=== PATIENT | male | born 1970 | race Caucasian/White ===

== ENCOUNTER → 2023-06-27 | Emergency (ER) | payer BC ==
[~2023-06-27] MED LIST: HYDROCODONE/APAP 10/325 TAB ONE; HYDROMORPHONE HCL 2 MG/ML inj ONE; KETOROLAC 30 MG/ML INJ ONE; PROMETHAZINE 25 MG TABLET ONE; dexAMETHasone 10 MG/ML VIAL ONE
--- NOTE | 2023-06-27 17:06 | RAD REPORT ---
EXAM DESCRIPTION: RAD - Hip Right 2 View - 06/27/2023 4:58 pm CLINICAL HISTORY: PAIN COMPARISON: No comparisons FINDINGS: Right total hip arthroplasty is noted. No hardware loosening or infection. No fracture see n.
--- NOTE | 2023-06-27 17:06 | RAD REPORT ---
EXAM DESCRIPTION: RAD - Pelvis - 06/27/2023 4:58 pm CLINICAL HISTORY: PAIN COMPARISON: No comparisons FINDINGS: Bilateral total hip arthroplasties noted. No hardware abnormality seen. No fracture or dis location evident.
--- NOTE | 2023-06-27 18:11 | EDPHYS ---
Physician Documentation [facility] Name: Santos Louise Age: 52 yrs Sex: Male : 1970 Arrival Date: 06/27/2023 Time: 16:12 Bed IW4 Private MD: PIPER Physician Mat Granger HPI: 06/27 17:53 This 52 yrs old Male presents to ER via Ambulatory with complaints of Hip yeimy Pain. 17:53 The patient or guardian reports decreased range of motion, an injury, pain. that yeimy occurred at an unknown site, sustained from unknown reason, There is no obvious deformity, The patient is able to self ambulate. The patient is able to bear their full body weight. The complaints affect the coccyx. Onset: The symptoms/episode began/occurred today. Modifying factors: The symptoms are alleviated by nothing, remaining still, the symptoms are aggravated by any movement, extension, weight bearing. Associated signs and symptoms: Loss of consciousness: the patient experienced no loss of consciousness. Severity of symptoms: At their worst the symptoms were moderate, in the emergency department the symptoms are unchanged. The patient has experienced similar episodes in the past, several times. Historical: - Allergies: 16:34 PENICILLINS; ll1 - PMHx: 16:34 None; ll1 - PSHx: 16:34 2 hip replacements; ll1 - Immunization history:: Adult Immunizations up to date. - Social history:: Smoking status: Patient reports the use of cigarette tobacco products, smokes one pack cigarettes per day. - Family history:: not pertinent. ROS: 17:53 Constitutional: Negative for fever, chills, and weight loss, Eyes: Negative for injury, yeimy pain, redness, and discharge, ENT: Negative for injury, pain, and discharge, Neck: Negative for injury, pain, and swelling, Cardiovascular: Negative for chest pain, palpitations, and edema, Respiratory: Negative for shortness of breath, cough, wheezing, and pleuritic chest pain, Abdomen/GI: Negative for abdominal pain, nausea, vomiting, diarrhea, and constipation, Back: Negative for injury and pain, : Negative for injury, bleeding, discharge, and swelling, Skin: Negative for injury, rash, and discoloration, Neuro: Negative for headache, weakness, numbness, tingling, and seizure, Psych: Negative for depression, anxiety, suicide ideation, homicidal ideation, and hallucinations, Allergy/Immunology: Negative for hives, rash, and allergies, Endocrine: Negative for neck swelling, polydipsia, polyuria, polyphagia, and marked weight changes, Hematologic/Lymphatic: Negative for swollen nodes, abnormal bleeding, and unusual bruising, 17:53 MS/extremity: Positive for decreased range of motion, pain, of the coccyx, Exam: 17:53 Constitutional: This is a well developed, well nourished patient who is awake, alert, yeimy and in no acute distress. Head/Face: Normocephalic, atraumatic. Eyes: Pupils equal round and reactive to light, extra-ocular motions intact. Lids and lashes normal. Conjunctiva and sclera are non-icteric and not injected. Cornea within normal limits. Periorbital areas with no swelling, redness, or edema. ENT: Nares patent. No nasal discharge, no septal abnormalities noted. Tympanic membranes are normal and external auditory canals are clear. Oropharynx with no redness, swelling, or masses, exudates, or evidence of obstruction, uvula midline. Mucous membranes moist. Neck: Trachea midline, no thyromegaly or masses palpated, and no cervical lymphadenopathy. Supple, full range of motion without nuchal rigidity, or vertebral point tenderness. No Meningismus. Chest/axilla: Normal chest wall appearance and motion. Nontender with no deformity. No lesions are appreciated. Cardiovascular: Regular rate and rhythm with a normal S1 and S2. No gallops, murmurs, or rubs. Normal PMI, no JVD. No pulse deficits. Respiratory: Lungs have equal breath sounds bilaterally, clear to auscultation and percussion. No rales, rhonchi or wheezes noted. No increased work of breathing, no retractions or nasal flaring. Abdomen/GI: Soft, non-tender, with normal bowel sounds. No distension or tympany. No guarding or rebound. No evidence of tenderness throughout. Male : Normal genitalia with no discharge or lesions. Skin: Warm, dry with normal turgor. Normal color with no rashes, no lesions, and no evidence of cellulitis. MS/ Extremity: Pulses equal, no cyanosis. Neurovascular intact. Full, normal range of motion. Neuro: Awake and alert, GCS 15, oriented to person, place, time, and situation. Cranial nerves II-XII grossly intact. Motor strength 5/5 in all extremities. Sensory grossly intact. Cerebellar exam normal. Normal gait. Psych: Awake, alert, with orientation to person, place and time. Behavior, mood, and affect are within normal limits. 17:53 Back: pain, that is moderate, ROM is painful, normal spinal alignment noted, no kyphosis, CVA tenderness, that is mild, vertebral tenderness, is not appreciated, Vital Signs: 16:32 BP 146 / 93; Pulse 100; Resp 18; Temp 97.3; Pulse Ox 100% ; Weight 81.65 kg; Height 5 ll1 ft. 8 in. ; Pain 10/10; 16:32 Body Mass Index 27.37 (81.65 kg, 172.72 cm) ll1 16:32 Pain Scale: Adult ll1 MDM: 16:38 Patient medically screened. [facility] 18:03 Differential diagnosis: bursitis, arthritis, strain. Data reviewed: vital signs, nurses [facility] notes, radiologic studies, plain films. Consideration of Admission/Observation Escalation of care including admission/observation considered. I considered the following discharge prescriptions or medication management in the emergency department Medications were administered in the Emergency Department. See MAR. Independent interpretation of the following test(s) in the Emergency Department X-Ray: My interpretation is hip and pelvis. Test considered but Not performed: Labs: no labs. 06/27 16:39 Order name: Pelvis XRAY; Complete Time: 17:52 yeimy 06/27 16:39 Order name: Hip Right 2 View XRAY; Complete Time: 17:52 [facility] Administered Medications: 16:50 Drug: Ketorolac IM 60 mg IM once Route: IM; Site: left gluteus; ll1 19:03 Follow up: Response: No adverse reaction ll1 16:50 Drug: Dexamethasone IM 10 mg IM once Route: IM; Site: right gluteus; ll1 19:03 Follow up: Response: No adverse reaction ll1 16:51 Drug: Ivor PO 10 mg-325 mg 1 tabs PO once Route: PO; ll1 19:03 Follow up: Response: No adverse reaction; Pain is decreased ll1 18:17 Drug: HYDROmorphone IM 2 mg IM once Route: IM; Site: right gluteus; ll1 19:03 Follow up: Response: No adverse reaction; Pain is decreased ll1 18:17 Drug: Promethazine IM 25 mg IM once {Note: given PO.} Route: IM; Site: Other; ll1 19:03 Follow up: Response: No adverse reaction ll1 Disposition Summary: 06/27/23 18:10 Discharge Ordered Notes: Location: Home yeimy Problem: new yeimy Symptoms: have improved yeimy Condition: Stable yeimy Diagnosis - Pain in right hip yeimy - Sprain of sacroiliac joint yeimy - Sacroiliitis, not elsewhere classified yeimy Followup: yeimy - With: Private Physician - When: 2 - 3 days - Reason: Recheck today's complaints, Continuance of care, Re-evaluation by your physician Followup: yeimy - With: Shaan Hong DO - When: 2 - 3 days - Reason: Recheck today's complaints, Continuance of care, Re-evaluation by your physician Discharge Instructions: - Discharge Summary Sheet yeimy - Joint Pain yeimy - Arthritis yeimy - Musculoskeletal Pain yeimy - Hip Pain yeimy - Arthritis, Ulzh-ga-[id number] [facility] Forms: - Medication Reconciliation Form [facility] - Thank You Letter [facility] - Antibiotic Education yeimy - Prescription Opioid Use yeimy - Patient Portal Instructions yeimy - Leadership Thank You Letter yeimy - Work release form ll1 Signatures: Dispatcher [employer] Mat Bruce MD MD cha Baxter, Heather, RN RN Chapin Parker RN RN ll1 Corrections: (The following items were deleted from the chart) 16:35 16:34 Social history: Smoking status: Patient denies any tobacco usage or history of. ll1 ll1
--- NOTE | 2023-06-27 18:11 | ER ---
Nurse's Notes [facility] Name: Santos Louise Age: 52 yrs Sex: Male : 1970 Arrival Date: 06/27/2023 Time: 16:12 Bed IW4 Private MD: Diagnosis: Pain in right hip;Sprain of sacroiliac joint;Sacroiliitis, not elsewhere classified Presentation: 06/27 16:32 Chief complaint: Patient states: Severe R hip/low back pain. Went to [facility] today. Got ll1 steroid and pain injection. Pain started returning on the way home today. Feet feel cold. No falls/trauma. + sweating. Coronavirus screen: Client denies travel out of the [place] in the last 14 days. At this time, the client does not indicate any symptoms associated with coronavirus-19. Ebola Screen: Patient denies travel to an Ebola-affected area in the 21 days before illness onset. Initial Sepsis Screen: Does the patient meet any 2 criteria? No. Patient's initial sepsis screen is negative. Does the patient have a suspected source of infection? No. Patient's initial sepsis screen is negative. Risk Assessment: Do you want to hurt yourself or someone else? Patient reports no desire to harm self or others. Onset of symptoms was June 21, 2023. 16:32 Method Of Arrival: Ambulatory 1 16:32 Acuity: ESEQUIEL 3 ll1 Triage Assessment: 16:35 General: Appears distressed, uncomfortable, Behavior is cooperative, appropriate for ll1 age, restless. Pain: Complains of pain in R hip area Pain currently is 10 out of 10 on a pain scale. Musculoskeletal: Reports pain in R hip area. Historical: - Allergies: 16:34 PENICILLINS; ll1 - PMHx: 16:34 None; ll1 - PSHx: 16:34 2 hip replacements; ll1 - Immunization history:: Adult Immunizations up to date. - Social history:: Smoking status: Patient reports the use of cigarette tobacco products, smokes one pack cigarettes per day. - Family history:: not pertinent. Screenin:04 [facility] ED Fall Risk Assessment (Adult) Score/Fall Risk Level 0 - 2 = Low Risk ll1 Oriented to surroundings, Maintained a safe environment, Educated pt \T\ family on fall prevention, incl call for assistance when getting out of bed, Hourly rounding (assess needs \T\ fall precautionary measures) done. Abuse screen: Denies threats or abuse. Nutritional screening: No deficits noted. Tuberculosis screening: No symptoms or risk factors identified. Assessment: 18:10 Reassessment: No changes from previously documented assessment. Patient and/or family ll1 updated on plan of care and expected duration. Pain level reassessed. Patient is alert, oriented x 3, equal unlabored respirations, skin warm/dry/pink. Patient states feeling better. 18:20 Reassessment: No changes from previously documented assessment. Patient and/or family ll1 updated on plan of care and expected duration. Pain level reassessed. Vital Signs: 16:32 BP 146 / 93; Pulse 100; Resp 18; Temp 97.3; Pulse Ox 100% ; Weight 81.65 kg; Height 5 ll1 ft. 8 in. ; Pain 10/10; 16:32 Body Mass Index 27.37 (81.65 kg, 172.72 cm) ll1 16:32 Pain Scale: Adult ll1 ED Course: 16:14 Patient arrived in ED. ae5 16:25 Arm band placed on. hb 16:34 Triage completed. ll1 16:38 Mat Granger MD is Attending Physician. yeimy 16:59 Pelvis XRAY In Process Unspecified. EDMS 16:59 Hip Right 2 View XRAY In Process Unspecified. EDMS 18:09 Shaan Hong DO is Referral Physician. yeimy 19:04 No provider procedures requiring assistance completed. Patient did not have IV access ll1 during this emergency room visit. Administered Medications: 16:50 Drug: Ketorolac IM 60 mg IM once Route: IM; Site: left gluteus; ll1 19:03 Follow up: Response: No adverse reaction ll1 16:50 Drug: Dexamethasone IM 10 mg IM once Route: IM; Site: right gluteus; ll1 19:03 Follow up: Response: No adverse reaction ll1 16:51 Drug: [place] PO 10 mg-325 mg 1 tabs PO once Route: PO; ll1 19:03 Follow up: Response: No adverse reaction; Pain is decreased ll1 18:17 Drug: HYDROmorphone IM 2 mg IM once Route: IM; Site: right gluteus; ll1 19:03 Follow up: Response: No adverse reaction; Pain is decreased ll1 18:17 Drug: Promethazine IM 25 mg IM once {Note: given PO.} Route: IM; Site: Other; 1 19:03 Follow up: Response: No adverse reaction ll1 Medication: 19:05 VIS not applicable for this client. ll1 Outcome: 18:10 Discharge ordered by . yeimy 18:20 Patient left the ED. ll1 18:20 Discharged to home ambulatory, 1 18:20 Condition: stable 18:20 Discharge instructions given to patient, Instructed on discharge instructions, follow up and referral plans. Demonstrated understanding of instructions, follow-up care, Signatures: Dispatcher [employer] EDMS Mat Granger MD MD cha Baxter, Heather RN Chapin Del Cid RN RN 1 Nina Ac ae5 Corrections: (The following items were deleted from the chart) 16:35 16:34 Social history: Smoking status: Patient denies any tobacco usage or history of. 1 ll1
[2023-06-27 18:45] VITALS: BP 146/93; TEMP 97.3; O2SAT 100
== END ==
LOC: ER 16:12
DX: S33.6XXA Sprain of sacroiliac joint, initial encounter (principal); M46.1 Sacroiliitis, not elsewhere classified; M25.551 Pain in right hip; F17.210 Nicotine dependence, cigarettes, uncomplicated; Z88.0 Allergy status to penicillin; Z96.649 Presence of unspecified artificial hip joint
CPT/HCPCS: 72170; 73502; 96372; 99284; Q0169; J1170; J1100

== ENCOUNTER 2024-08-04 05:53 | Day surgery (SDC) | payer BC ==
[2024-07-31 13:44] LABS: Absolute Basophils 0.1 K/uL (0-0.5); Absolute Eosinophils 0.2 K/uL (0-0.5); Absolute Lymphocytes (CBC) 2.5 K/uL (0.7-4.9); Absolute Monocytes 0.4 K/uL (0.1-1.3); Absolute Neutrophil 2.5 K/uL (1.8-8.0); Basophils % 1.3 % (0-1.3); Eosinophils % 3.2 % (0-4.4); Hematocrit 42.4 % (39.6-49.0); Hemoglobin 14.8 g/dL (13.6-17.9); Lymphocytes % 44.1 % (15.3-44.8); MCH 31.2 pg (27.0-35.0); MCHC 34.8 g/dL (32.0-36.0); MCV 89.7 fL (80-100); MPV 8.1 fL (7.6-11.3); Monocytes % 6.3 % (3.3-12.3); Neutrophils % 45.1 % (41.7-73.7); Nucleated Red Blood Cells % 0.2 % (0-0); Platelets 257 thou/uL (152-406); RBC Red Blood Cell Count 4.73 M/uL (4.33-5.43); Red Cell Distribution Width 13.3 % (12.1-15.2)
[2024-07-31 13:48] LABS: PT Prothrombin Time 13.5 SECONDS (9.4-12.5); PTT, Activated Partial Thromb 33.8 SECONDS (24.3-36.9); Protime INR 1.29
[2024-07-31 13:57] LABS: Albumin/Globulin Ratio 1.2 (1.1-1.8); Bilirubin Total 0.4 mg/dL (0.2-1.0); Globulin 3.4 g/dL (2.3-3.5); Protein, Total 7.4 g/dL (6.4-8.2)
--- NOTE | 2024-08-01 13:41 | EKG ---
Test Date: 2024-07-31 Test Time: 14:23:36 Preparation Plant Supervisor: JAMIE MEASUREMENT RESULTS: Intervals: Rate: 59 CO: 138 QRSD: 82 QT: 410 QTc: 405 [place]: P: 65 CO: 138 QRS: -22 T: 46 INTERPRETIVE STATEMENTS: Sinus bradycardia Otherwise normal ECG Compared to ECG 03/30/2015 13:01:01 Sinus rhythm no longer present Electronically Signed On 08-01-24 13:38:31 COMPASS OPERATOR by Grey Dersa
[2024-08-04] MEDS ORDERED: KETAMINE HCL IN 0.9 % NACL 50 MG/5 ML SYRINGE IV ONE (06:07)
[2024-08-04] MEDS ORDERED: ONDANSETRON 4 MG/2 ML VIAL ONE (06:07)
[2024-08-04] MEDS ORDERED: KETOROLAC 30 MG/ML INJ ONE (06:07)
[2024-08-04] MEDS ORDERED: LIDOCAINE 2% MPF 5 ML VIAL ONE (06:07)
[2024-08-04] MEDS ORDERED: dexAMETHasone 10 MG/ML VIAL ONE (06:07)
[2024-08-04] MEDS ORDERED: propofoL 200 MG/20 ML VIAL IV ONE ×2 (06:08→08:27)
[2024-08-04] MEDS ORDERED: FENTANYL CITR 100 MCG/2 ML ONE (06:08)
[2024-08-04] MEDS ORDERED: ROCURONIUM 50 MG/5 ML VIAL IV ONE (06:08)
[2024-08-04] MEDS ORDERED: MIDAZOLAM HCL 2 MG/2 ML INJ ONE (06:08)
[2024-08-04] MEDS ORDERED: Ringers Lactate 1,000 ML IV ONE ×2 (06:21→08:44)
[2024-08-04] MEDS ORDERED: SUCCINYLCHOLINE 20 MG/ML (10 ML) IV ONE (06:57)
[2024-08-04] MEDS: CLINDAMYCIN 900MG/D5W 900 MG/50 ML IVPB IV ONE (07:24)
[2024-08-04] MEDS ORDERED: NS 0.9% VIAL 10 ML ONE (07:50)
[2024-08-04] MEDS: THROMBIN 5000 UNITS/VIAL TOP ONE (08:10)
[2024-08-04] MEDS: VANCOMYCIN 1 GM/VIAL ONE (08:10)
[2024-08-04] MEDS: DEPO-MEDROL 40 MG/ML IM ONE (08:25)
[2024-08-04] MEDS ORDERED: TRANEXAMIC ACID 1,000 MG/10 ML VIAL IV ONE (08:26)
--- NOTE | 2024-08-04 08:30 | RAD REPORT ---
EXAM: Fluoroscopy use, Fluoroscopy <1 Hour HISTORY: L5-S1 LUMBAR DECOMPRESSION RIGHT COMPARISON: None FINDINGS: Multiple images were sent to PACS, during a fluoroscopically guided procedure. No radiologi st was involved in protocoling or performance of the study, and no radiologist was present for the duration of the procedure. No interpretation of the saved images will be provided. Total fluoroscopy time: 0.1. IMPRESSION: Documentation of fluoroscopy use as above.
[2024-08-04] MEDS ORDERED: Mastisol Adhesive Liq ONE (08:39)
[2024-08-04] MEDS ORDERED: DEXMEDETOMIDINE HCL 200 MCG/2 ML VIAL ONE (09:06)
[2024-08-04] MEDS: HYDROMORPHONE HCL 1 MG/ML INJ ONE ×2 (09:19→09:32)
[2024-08-04] MEDS: FENTANYL CITR 100 MCG/2 ML ONE (09:26)
[2024-08-04] MEDS ORDERED: HYDROCODONE/APAP 10/325 TAB ONE (10:12)
[2024-08-04] MEDS: HYDROCODONE/APAP 10/325 TAB PO ONE (10:20)
[2024-08-04 14:21] VITALS: BP 130/74; TEMP 97.6; O2SAT 98
== END 2024-08-04 10:45 | disposition home or self-care (01) ==
LOC: OR 05:53
PROVIDERS: ATTEND Orthopaedic Surgery
PROC: 01NR0ZZ Release Sacral Nerve, Open Approach (ICD-10-PCS; 2024-08-04)
PROC: 01NB0ZZ Release Lumbar Nerve, Open Approach (ICD-10-PCS; principal; 2024-08-04 07:00)
DX: M54.16 Radiculopathy, lumbar region (principal)
CPT/HCPCS: 63047; 93005; 85025; 36415; 85610; 85730; 83036; 80053; 76000; A4216; J2704; J1010; J2003; J3010 ×2; J1100; J1171 ×2; J2405; J7120 ×2; J2250

== ENCOUNTER 2025-03-20 15:27 | Emergency (ER) | payer BC ==
[2025-03-20] MEDS ORDERED: HYDROMORPHONE HCL 1 MG/ML INJ ONE (16:46)
[2025-03-20] MEDS ORDERED: NA CHLORIDE 0.9% 1,000 ML ONE (16:46)
[2025-03-20] MEDS ORDERED: ONDANSETRON 4 MG/2 ML VIAL ONE (16:46)
[2025-03-20 17:15] LABS: Absolute Lymphocytes (CBC) 0.5 K/uL (0.7-4.9); Hematocrit 38.6 % (39.6-49.0); Hemoglobin 13.2 g/dL (13.6-17.9); MCH 30.4 pg (27.0-35.0); MCHC 34.2 g/dL (32.0-36.0); MCV 88.9 fL (80-100); MPV 7.5 fL (7.6-11.3); Nucleated RBC Absolute Count 0.0 (0-0); Nucleated Red Blood Cells % 0.0 % (0-0); RBC Red Blood Cell Count 4.34 M/uL (4.33-5.43); White Blood Count 14.10 thou/uL (4.3-10.9)
[2025-03-20 17:34] LABS: ALT/SGPT 46.0 U/L (16-61); AST/SGOT 35.0 U/L (15-37); Albumin 3.5 g/dL (3.4-5.0); Albumin/Globulin Ratio 1.1 (1.1-1.8); Alkaline Phosphatase 96.0 U/L (45-117); Anion Gap 10.1 mEq/L (5.0-15.0); BUN Blood Urea Nitrogen 12.0 mg/dL (7-18); Bilirubin Indirect, Calculated 0.4 mg/dL (0.2-0.8); Globulin 3.1 g/dL (2.3-3.5); Glucose Level 114.0 mg/dL (74-106); Lipase 12.0 U/L (13-75); Magnesium 1.9 mg/dL (1.6-2.4); NT PRO-BNP 72.0 pg/mL (<125); Potassium 4.1 mEq/L (3.5-5.1); Troponin High Sensitivity 9.1 pg/mL (<58.9)
[2025-03-20 17:44] LABS: PT Prothrombin Time 15.3 SECONDS (10-13.0); Protime INR 1.37
[2025-03-20 18:30] LABS: Blood Morphology Comment NOTED (NOT SEEN); Stomatocytes 1+; White Blood Cell Scan OK (OK)
--- NOTE | 2025-03-20 18:34 | RAD REPORT ---
Procedure: Chest Single View HISTORY: Cough COMPARISON: 2010 FINDINGS: The lungs appear clear of acute infiltrate. No significant pleural effusion noted. The heart is normal size. IMPRESSION: No acute abnormality is displayed.
[2025-03-20 18:53] LABS: Sqamous Epithelial None Seen /HPF (None Seen); Urine Culture Reflex Order NOT NEEDED; Urine Microscopic Reflex YN ORDER UMIC
--- NOTE | 2025-03-20 18:55 | RAD REPORT ---
EXAMINATION: CT ABDOMEN AND PELVIS WITH CONTRAST CLINICAL INDICATION: Abdominal pain TECHNIQUE: CT abdomen and pelvis was performed, after the administration of 100 cc Isovue-300.. Sagit andie and coronal reconstructions were obtained. One or more of the following dose reduction techniques were used: Automated exposure control, adjustment of the mA and kV according to patient si ze, and iterative reconstruction. Unless otherwise specified, incidental findings do not require dedicated imaging follow-up. [id number]. Oral contrast was not given which limits evaluation of bowel and appendix. COMPARISON: .2023 FINDINGS: Liver, spleen, pancreas, adrenals and kidneys appear unremarkable No evidence of diverticulitis. Several screws fuse the right and left sacroiliac joints. Post surgical changes lumbar spine and hips . Moderate amount of stool within the transverse and right colon Stranding within the subcutaneous fat of the left flank. : IMPRESSION: Moderate amount of stool within the transverse and right colon Fusion of the sacroiliac joints. Stranding of the subcutaneous fat left flank nonspecific. This could be secondary to previous surgery or inflammation.
--- NOTE | 2025-03-20 19:37 | EDPHYS ---
Physician Documentation [facility] Name: Santos Louise Age: 54 yrs Sex: Male : 1970 Arrival Date: 03/20/2025 Time: 15:27 Bed 7 Private MD: ED Physician Aniceto Mahmood HPI: 03/20 19:27 This 54 yrs old Male presents to ER via EMS with complaints of Hip Pain. yeimy 19:27 The patient or guardian reports decreased range of motion, pain. sp left si fusion yeimy today. The complaints affect the left hip. Onset: The symptoms/episode began/occurred today. Modifying factors: The symptoms are alleviated by nothing, remaining still, the symptoms are aggravated by any movement, flexion. Associated signs and symptoms: Loss of consciousness: the patient experienced no loss of consciousness. Severity of symptoms: At their worst the symptoms were moderate, in the emergency department the symptoms have improved, mildly. The patient has not experienced similar symptoms in the past. Historical: - Allergies: 15:39 PENICILLINS; nh2 - PMHx: 15:39 Chronic back pain; nh2 - PSHx: 15:39 2 hip replacements; back (re); nh2 15:39 pain pump; nh2 15:39 Left SI Joint Fusion; nh2 - Immunization history:: Adult Immunizations up to date. - Infectious Disease History:: Denies. - Social history:: Smoking status: Patient reports the use of cigarette tobacco products, smokes one-half pack cigarettes per day. - Family history:: not pertinent. ROS: 19:27 Constitutional: Negative for fever, chills, and weight loss, Eyes: Negative for injury, yeimy pain, redness, and discharge, ENT: Negative for injury, pain, and discharge, Neck: Negative for injury, pain, and swelling, Cardiovascular: Negative for chest pain, palpitations, and edema, Respiratory: Negative for shortness of breath, cough, wheezing, and pleuritic chest pain, Abdomen/GI: Negative for abdominal pain, nausea, vomiting, diarrhea, and constipation, Back: Negative for injury and pain, : Negative for injury, bleeding, discharge, and swelling, Skin: Negative for injury, rash, and discoloration, Neuro: Negative for headache, weakness, numbness, tingling, and seizure, Psych: Negative for depression, anxiety, suicide ideation, homicidal ideation, and hallucinations, Allergy/Immunology: Negative for hives, rash, and allergies, Endocrine: Negative for neck swelling, polydipsia, polyuria, polyphagia, and marked weight changes, Hematologic/Lymphatic: Negative for swollen nodes, abnormal bleeding, and unusual bruising, 19:27 MS/extremity: Positive for decreased range of motion, pain, swelling, tenderness, of the left lower back, Exam: 19:30 Constitutional: This is a well developed, well nourished patient who is awake, alert, yeimy and in no acute distress. Head/Face: Normocephalic, atraumatic. Eyes: Pupils equal round and reactive to light, extra-ocular motions intact. Lids and lashes normal. Conjunctiva and sclera are non-icteric and not injected. Cornea within normal limits. Periorbital areas with no swelling, redness, or edema. ENT: Nares patent. No nasal discharge, no septal abnormalities noted. Tympanic membranes are normal and external auditory canals are clear. Oropharynx with no redness, swelling, or masses, exudates, or evidence of obstruction, uvula midline. Mucous membranes moist. Neck: Trachea midline, no thyromegaly or masses palpated, and no cervical lymphadenopathy. Supple, full range of motion without nuchal rigidity, or vertebral point tenderness. No Meningismus. Chest/axilla: Normal chest wall appearance and motion. Nontender with no deformity. No lesions are appreciated. Cardiovascular: Regular rate and rhythm with a normal S1 and S2. No gallops, murmurs, or rubs. Normal PMI, no JVD. No pulse deficits. Respiratory: Lungs have equal breath sounds bilaterally, clear to auscultation and percussion. No rales, rhonchi or wheezes noted. No increased work of breathing, no retractions or nasal flaring. Abdomen/GI: Soft, non-tender, with normal bowel sounds. No distension or tympany. No guarding or rebound. No evidence of tenderness throughout. Male : Normal genitalia with no discharge or lesions. Skin: Warm, dry with normal turgor. Normal color with no rashes, no lesions, and no evidence of cellulitis. Neuro: Awake and alert, GCS 15, oriented to person, place, time, and situation. Cranial nerves II-XII grossly intact. Motor strength 5/5 in all extremities. Sensory grossly intact. Cerebellar exam normal. Normal gait. Psych: Awake, alert, with orientation to person, place and time. Behavior, mood, and affect are within normal limits. 19:30 ECG was reviewed by the Attending Physician. 19:30 Back: pain, that is moderate, ROM is normal, normal spinal alignment noted, CVA tenderness, is absent, muscle spasm, is appreciated in the left low back, 19:30 Musculoskeletal/extremity: ROM: limited passive range of motion, limited active range of motion due to pain, Circulation is intact in all extremities. Sensation intact. Compartment Syndrome exam of affected extremity: is normal. DVT Exam: negative Homans' sign noted on exam, no appreciated bluish discoloration, no erythema, no increased warmth, pain, swelling, tenderness, suggical wound not bleeding , not red, moderate tenderness. Vital Signs: 15:36 BP 141 / 113; Pulse 118; Resp 22; Temp 98.6(O); Pulse Ox 98% on R/A; Weight 90.72 kg; nh2 Height 5 ft. 8 in. ; Pain 10/10; 16:30 BP 142 / 107; Pulse 95; Resp 18; Pulse Ox 98% on R/A; nh2 17:30 BP 131 / 92; Pulse 93; Resp 18; Pulse Ox 98% on R/A; nh2 18:30 BP 135 / 89; Pulse 89; Resp 19; Temp 99.2(O); Pulse Ox 100% on R/A; nh2 19:15 BP 152 / 102; Pulse 97; Resp 16 S; Pulse Ox 100% on R/A; Pain 5/10; lg3 20:20 BP 160 / 112; Pulse 98; Resp 16; Pulse Ox 99% on R/A; kd3 21:31 BP 160 / 97; Pulse 90; Resp 15 S; Pulse Ox 99% on R/A; lg3 15:36 Body Mass Index 30.41 (90.72 kg, 172.72 cm) nh2 15:36 Pain Scale: Adult nh2 19:15 Pain Scale: Adult lg3 MDM: 16:09 Medical Screening Exam initiated yeimy 19:33 Differential diagnosis: strain. Data reviewed: vital signs, nurses notes, lab test [facility] result(s), EKG, radiologic studies, CT scan, plain films. Consideration of Admission/Observation Escalation of care including admission/observation considered. I considered the following discharge prescriptions or medication management in the emergency department Medications were administered in the Emergency Department. See MAR. Independent interpretation of the following test(s) in the Emergency Department EKG: See my EKG interpretation above. Test considered but Not performed: MRI: no mri. Historians other than the Patient: Spouse/Significant Other: well informed. Care significantly affected by the following chronic conditions: cbp. Counseling: I had a detailed discussion with the patient and/or guardian regarding the historical points, exam findings, and any diagnostic results supporting the discharge/admit diagnosis, lab results, radiology results, the need to transfer to another facility, for higher level of care, [facility] does not immediately have the required specialist. 03/20 16:20 Order name: Basic Metabolic Panel; Complete Time: 19: [facility] 03/20 16:20 Order name: CBC with Diff; Complete Time: 19: [facility] 03/20 16:20 Order name: LFT's; Complete Time: 19: [facility] 03/20 16:20 Order name: Magnesium; Complete Time: 19: [facility] 03/20 16:20 Order name: NT PRO-BNP; Complete Time: 19:10 [facility] 03/20 16:20 Order name: PT-INR; Complete Time: 19: [facility] 03/20 16:20 Order name: Troponin HS; Complete Time: 19: [facility] 03/20 16:20 Order name: UA Rfx Robles Cult if indicated; Complete Time: 19:10 [facility] 03/20 16:20 Order name: Lipase; Complete Time: 19: [facility] 03/20 18:30 Order name: CBC Smear Scan; Complete Time: 19:10 [facility] 03/20 16:20 Order name: XRAY Chest (1 view); Complete Time: 19:10 [facility] 03/20 16:20 Order name: CT Abd/Pelvis - IV Contrast Only: go through mid femur; Complete Time: 19:[facility] 03/20 16:20 Order name: EKG; Complete Time: 16:21 [facility] 03/20 16:20 Order name: Cardiac monitoring; Complete Time: 17:18 [facility] 03/20 16:20 Order name: EKG - Nurse/Tech; Complete Time: 17:18 [facility] 03/20 16:20 Order name: IV Saline Lock; Complete Time: 17:18 [facility] 03/20 16:20 Order name: Labs collected and sent; Complete Time: 17:18 yeimy 03/20 16:20 Order name: O2 Per Protocol; Complete Time: 17:18 yeimy 03/20 16:20 Order name: O2 Sat Monitoring; Complete Time: 17:18 yeimy 03/20 17:19 Order name: Labs - recollect needed: recollect blue top/ hemolyzed per lab; Complete eb Time: 17:28 EC:30 Rate is 105 beats/min. Rhythm is regular. QRS [place] is Normal. NH interval is normal. yeimy QRS interval is normal. QT interval is normal. No Q waves. T waves are Normal. No ST changes noted. Clinical impression: Sinus tachycardia and No evidence of ischemia. Interpreted by me. Reviewed by me. Administered Medications: 16:55 Drug: NS 0.9% IV 1000 ml IV at 1 bolus Per protocol; to be given as a bolus over 60 nh2 minutes Route: IV; Rate: 1 bolus; Site: left antecubital; 20:34 Follow up: Response: No adverse reaction; IV Status: Completed infusion; IV Intake: lg3 1000ml 16:55 Drug: HYDROmorphone IVP 1 mg IVP once Route: IVP; Site: left antecubital; nh2 17:20 Follow up: Response: No adverse reaction; Pain is decreased nh2 16:55 Drug: Ondansetron IVP 8 mg IVP once; over 2 minutes Route: IVP; Site: left antecubital; nh2 17:21 Follow up: Response: No adverse reaction nh2 20:34 Drug: Decadron - Dexamethasone IVP 10 mg IVP once Route: IVP; Site: left antecubital; lg3 21:32 Follow up: Response: No adverse reaction lg3 21:13 Drug: fentaNYL (PF) IVP 100 mcg IVP once Route: IVP; Site: left antecubital; kd3 21:32 Follow up: Response: No adverse reaction; Medication Administered at Departure lg3 Disposition Summary: 03/20/25 19:36 Transfer Ordered Notes: Transfer Location: Other Acute Care Facility yeimy Reason: Higher level of care yeimy Condition: Stable yeimy Problem: an acute exacerbation yeimy Symptoms: have improved yeimy Accepting Physician: dr yenny de la torre(03/20/25 21:33) lg3 Diagnosis - Pain in left hip - sp left SI FUSION yeimy - Elevated white blood cell count yeimy Forms: - Medication Reconciliation Form yeimy - SBAR form [facility] Signatures: Dispatcher [employer] EDMat Cool MD MD cha Botello, Elizabeth eb Able, Lacie, RN RN lg3 Odette Key RN RN kd3 Aniceto Mahmood MD MD sp4 Luis Manuel Sullivan Jr, RN RN nh2 Corrections: (The following items were deleted from the chart) 21:33 19:36 dr yenny de la torre cha lg3
--- NOTE | 2025-03-20 19:37 | ER ---
Nurse's Notes [facility] Name: Santos Louise Age: 54 yrs Sex: Male : 1970 Arrival Date: 03/20/2025 Time: 15:27 Bed 7 Private MD: Diagnosis: Pain in left hip-sp left SI FUSION;Elevated white blood cell count Presentation: 03/20 15:36 Chief complaint: Patient states: reports having an SI joint fusion this morning and has nh2 been having constant L-sided hip pain. Coronavirus screen: At this time, the client does not indicate any symptoms associated with coronavirus-19. Ebola Screen: Patient denies travel to an Ebola-affected area in the 21 days before illness onset. No symptoms or risks identified at this time. Initial Sepsis Screen: Does the patient meet any 2 criteria? RR > 20 per min. No. Patient's initial sepsis screen is negative. Does the patient have a suspected source of infection? No. Patient's initial sepsis screen is negative. Risk Assessment: Do you want to hurt yourself or someone else? Patient reports no desire to harm self or others. Onset of symptoms was March 20, 2025. 15:36 Method Of Arrival: EMS: [facility] 15:36 Acuity: ESEQUIEL 3 nh2 Triage Assessment: 15:39 General: Appears distressed, uncomfortable, Behavior is crying, restless. Pain: nh2 Complains of pain in low back area and left flank Pain does not radiate. Pain currently is 10 out of 10 on a pain scale. Quality of pain is described as aching, Pain began 4 hours ago. Is continuous. EENT: No signs and/or symptoms were reported regarding the EENT system. Neuro: Level of Consciousness is awake, alert, obeys commands, confused, Oriented to person, place, time, situation, Appropriate for age Denies dizziness, headache. Cardiovascular: Denies chest pain, Patient's skin is warm and dry. Respiratory: Airway is patent Trachea midline Respiratory effort is even, unlabored, Respiratory pattern is symmetrical, tachypnea Denies shortness of breath. GI: Abdomen is round non-distended, Patient currently denies nausea, vomiting. : No signs and/or symptoms were reported regarding the genitourinary system. Denies burning with urination. Derm: Skin is pink, warm \T\ dry. Musculoskeletal: Circulation, motion, and sensation intact. Range of motion: intact in all extremities. Historical: - Allergies: 15:39 PENICILLINS; nh2 - PMHx: 15:39 Chronic back pain; nh2 - PSHx: 15:39 2 hip replacements; back (re); nh2 15:39 pain pump; nh2 15:39 Left SI Joint Fusion; nh2 - Immunization history:: Adult Immunizations up to date. - Infectious Disease History:: Denies. - Social history:: Smoking status: Patient reports the use of cigarette tobacco products, smokes one-half pack cigarettes per day. - Family history:: not pertinent. Screenin:42 [facility] ED Fall Risk Assessment (Adult) History of falling in the last 3 months, nh2 including since admission No falls in past 3 months (0 pts) Confusion or Disorientation No (0 pts) Intoxicated or Sedated No (0 pts) Impaired Gait No (0 pts) Mobility Assist Device Used No (0 pt) Altered Elimination No (0 pt) Score/Fall Risk Level 0 - 2 = Low Risk Oriented to surroundings, Maintained a safe environment, Educated pt \T\ family on fall prevention, incl call for assistance when getting out of bed, Assessed \T\ reinforced patient's understanding of fall precautions. Abuse screen: Denies threats or abuse. Denies injuries from another. Nutritional screening: No deficits noted. Tuberculosis screening: No symptoms or risk factors identified. Assessment: 15:42 Reassessment: see triage. nh2 16:40 Reassessment: Patient and/or family updated on plan of care and expected duration. Pain nh2 level reassessed. Patient is alert, oriented x 3, equal unlabored respirations, skin warm/dry/pink. 17:15 Reassessment: Patient and/or family updated on plan of care and expected duration. Pain nh2 level reassessed. Patient is alert, oriented x 3, equal unlabored respirations, skin warm/dry/pink. Patient states feeling better. 18:15 Reassessment: Patient and/or family updated on plan of care and expected duration. Pain nh2 level reassessed. Patient is alert, oriented x 3, equal unlabored respirations, skin warm/dry/pink. Patient states feeling better. 19:15 General: Appears in no apparent distress. comfortable, Behavior is calm, cooperative. lg3 Pain: Complains of pain in left hip Pain currently is 5 out of 10 on a pain scale. Neuro: No deficits noted. Devlin Agitation-Sedation Scale (RASS): 0 - Alert and Calm Level of Consciousness is awake, alert, obeys commands, Oriented to person, place, time, situation. Cardiovascular: No deficits noted. Denies chest pain, shortness of breath, Capillary refill < 3 seconds Clubbing of nail beds is absent JVD is absent Patient's skin is warm and dry. Respiratory: No deficits noted. Airway is patent Respiratory effort is even, unlabored, Respiratory pattern is regular, symmetrical. GI: No deficits noted. No signs and/or symptoms were reported involving the gastrointestinal system. : No signs and/or symptoms were reported regarding the genitourinary system. EENT: No deficits noted. No signs and/or symptoms were reported regarding the EENT system. Derm: No deficits noted. No signs and/or symptoms reported regarding the dermatologic system. Skin is intact, is healthy with good turgor, Skin is dry, Skin is normal, Skin temperature is warm. Musculoskeletal: Circulation, motion, and sensation intact. Range of motion: intact in all extremities, Reports pain in left hip. 20:21 General: Nurse to Nurse report given, Doc to Doc given . kd3 21:31 Reassessment: Patient appears in no apparent distress at this time. No changes from lg3 previously documented assessment. Patient and/or family updated on plan of care and expected duration. Pain level reassessed. Patient is alert, oriented x 3, equal unlabored respirations, skin warm/dry/pink. Patient states feeling better. Patient states symptoms have improved. Vital Signs: 15:36 BP 141 / 113; Pulse 118; Resp 22; Temp 98.6(O); Pulse Ox 98% on R/A; Weight 90.72 kg; nh2 Height 5 ft. 8 in. ; Pain 10/10; 16:30 BP 142 / 107; Pulse 95; Resp 18; Pulse Ox 98% on R/A; nh2 17:30 BP 131 / 92; Pulse 93; Resp 18; Pulse Ox 98% on R/A; nh2 18:30 BP 135 / 89; Pulse 89; Resp 19; Temp 99.2(O); Pulse Ox 100% on R/A; nh2 19:15 BP 152 / 102; Pulse 97; Resp 16 S; Pulse Ox 100% on R/A; Pain 5/10; lg3 20:20 BP 160 / 112; Pulse 98; Resp 16; Pulse Ox 99% on R/A; kd3 21:31 BP 160 / 97; Pulse 90; Resp 15 S; Pulse Ox 99% on R/A; lg3 15:36 Body Mass Index 30.41 (90.72 kg, 172.72 cm) nh2 15:36 Pain Scale: Adult nh2 19:15 Pain Scale: Adult lg3 ED Course: 15:30 Patient arrived in ED. eb 15:36 Luis Manuel Sullivan Jr, RN is Primary Nurse. nh2 15:39 Triage completed. nh2 15:39 Arm band placed on right wrist. nh2 15:42 Patient has correct armband on for positive identification. Bed in low position. Call nh2 light in reach. Side rails up X 1. Provided Education on: using call light for assistance. 16:08 Maintain EMS IV. Dressing intact. Site clean \T\ dry. Gauge \T\ site: 22G L AC . Flushed aa 5 with 10 mL NS. 16:09 Mat Granger MD is Attending Physician. [facility] 17:09 XRAY Chest (1 view) In Process Unspecified. EDMS 18:02 CT Abd/Pelvis - IV Contrast Only: go through mid femur In Process Unspecified. EDMS 18:46 UA Rfx Robles Cult if indicated Sent. nh2 19:00 Report given to TACHO Patel. nh2 19:19 Door closed. Noise minimized. Warm blanket given. Pillow given. Family accompanied lg3 patient. 21:09 Attending Physician role handed off by Mat Granger MD sp4 21:09 Aniceto Mahmood MD is Attending Physician. sp4 21:31 No provider procedures requiring assistance completed. Patient transferred, IV remains kd3 in place. 23:00 Dr. Granger intiated transfer with [facility]. pt was accepted ER. Accepting kmf Dr. Sandoval \T\ 2020. Admin [facility]. [facility] to transfer pt. Administered Medications: 16:55 Drug: NS 0.9% IV 1000 ml IV at 1 bolus Per protocol; to be given as a bolus over 60 nh2 minutes Route: IV; Rate: 1 bolus; Site: left antecubital; 20:34 Follow up: Response: No adverse reaction; IV Status: Completed infusion; IV Intake: lg3 1000ml 16:55 Drug: HYDROmorphone IVP 1 mg IVP once Route: IVP; Site: left antecubital; nh2 17:20 Follow up: Response: No adverse reaction; Pain is decreased nh2 16:55 Drug: Ondansetron IVP 8 mg IVP once; over 2 minutes Route: IVP; Site: left antecubital; nh2 17:21 Follow up: Response: No adverse reaction nh2 20:34 Drug: Decadron - Dexamethasone IVP 10 mg IVP once Route: IVP; Site: left antecubital; lg3 21:32 Follow up: Response: No adverse reaction lg3 21:13 Drug: fentaNYL (PF) IVP 100 mcg IVP once Route: IVP; Site: left antecubital; kd3 21:32 Follow up: Response: No adverse reaction; Medication Administered at Departure lg3 Medication: 19:19 VIS not applicable for this client. lg3 Intake: 20:34 IV: 1000ml; Total: 1000ml. lg3 Outcome: 19:36 ER care complete, transfer ordered by MD. gaffney 21:32 Transferred by ground EMS Transfer form completed. Note: [facility] lg3 21:32 Condition: stable 21:32 Instructed on the need for transfer, Demonstrated understanding of instructions, 21:33 Patient left the ED. lg3 Signatures: Dispatcher [employer] EDMat Cool MD MD cha Calderon, Audri, RN RN aa5 Helene Sandoval Lacie, RN RN lg3 Odette Key RN RN kd3 Aniceto Mahmood MD MD sp4 Luann Braxton [facility] Luis Manuel Sullivan Jr RN RN nh2
[2025-03-20] MEDS ORDERED: FENTANYL CITR 100 MCG/2 ML ONE (21:09)
[2025-03-20 21:43] VITALS: TEMP 99.2
[2025-03-20 21:47] VITALS: O2SAT 99
[2025-03-20 21:49] VITALS: BP 160/97
== END 2025-03-20 21:33 ==
LOC: ER 15:27
DX: G89.18 Other acute postprocedural pain (principal); Z98.890 Other specified postprocedural states; Z96.643 Presence of artificial hip joint, bilateral; F17.210 Nicotine dependence, cigarettes, uncomplicated
CPT/HCPCS: 96361; 93005; 85025; 81001; 80048; 36415; 83735; 85610; 80076; 84484; 83690; 83880; 74177; 71045; 96375; 96374; 99285; Q9967; J3010; J1100; J1171; J2405; J7030